=== PATIENT | male | born 1990 | race Caucasian/White ===

== ENCOUNTER → 2017-04-26 | Outpatient (CLI) | payer OTHER ==
--- NOTE | 2017-04-26 12:51 | DIAGNOSTIC IMAGING REPORT ---
LEFT VENOUS DOPP LOWER EXT UNILAT CLINICAL HISTORY: LEFT LEG PAIN AND SWELLING pain. Edema. TECHNIQUE: Venous Doppler none COMPARISON STUDY: None FINDINGS: Normal study IMPRESSION: Normal study The above report was generated using voice recognition software. It may contain grammatical, syntax or spelling errors. Electronically signed by: Geo Santana M.D. 04/26/2017 12:50 PM Dictated Date/Time: 04/26/2017 12:49 PM
--- NOTE | 2017-04-26 13:00 | DIAGNOSTIC IMAGING REPORT ---
LEFT TIBIA AND FIBULA 2 VIEWS CLINICAL HISTORY: Left leg pain and swelling. FINDINGS: AP and lateral views of the left tibia and fibula are compared to study dated 02/08/2007. The skeletal structures are well mineralized. No fracture is seen. The knee and ankle joints are grossly maintained. Mild soft tissue swelling is suggested around the knee. IMPRESSION: There is no radiographic evidence of left tibial or fibular fracture. Electronically signed by: Thaddeus Fair M.D. 04/26/2017 12:59 PM Dictated Date/Time: 04/26/2017 12:57 PM
== END | disposition home or self-care (01) ==
LOC: C.ULTRBC 12:16
PROVIDERS: ATTEND Internal Medicine
DX: M79.605 Pain in left leg (principal); M79.89 Other specified soft tissue disorders